=== PATIENT | male | born 1980 | race Caucasian/White ===

== ENCOUNTER 2018-11-11 18:30 | Emergency (ER) | payer SELFPAY ==
[2018-11-11] MEDS ORDERED: NA CHLORIDE 0.9% 1,000 ML ONE ×2 (19:40→20:58)
[2018-11-11 19:55] LABS: Absolute Monocytes 0.7 K/uL (0.1-1.3); Absolute Neutrophil 10.7 K/uL (1.8-8.0); Basophils % 0.5 % (0-1.3); Eosinophils % 0.1 % (0-4.4); Hematocrit 44.8 % (39.6-49.0); Lymphocytes % 14.6 % (15.3-44.8); MPV 8.2 fL (7.6-11.3)
[2018-11-11 20:12] LABS: Potassium 4.1 mmol/L (3.5-5.1)
--- NOTE | 2018-11-11 20:37 | RAD REPORT ---
EXAM DESCRIPTION: Leonarda Pa And Lat (2 Views)11/11/2018 7:17 pm CLINICAL HISTORY: Cough COMPARISON: None FINDINGS: 5 millimeter nodular opacity overlies the right upper lobe. Left lung appears clear The heart is normal size IMPRESSION: A 5 millimeter nodular opacity overlying the right upper lobe may represent confluence o f ribs and vessels or a pulmonary nodule. Follow-up chest film in 6 months is recommended for re-eval uation
[2018-11-11] MEDS ORDERED: PROMETHAZINE 25 MG/ML VIAL ONE (20:58)
[2018-11-11] MEDS ORDERED: KETOROLAC 30 MG/ML INJ ONE (20:58)
--- NOTE | 2018-11-11 22:11 | EDPHYS ---
Physician Documentation [facility] Name: Magdy Davis II Age: 38 yrs Sex: Male : 1980 Arrival Date: 11/11/2018 Time: 18:35 Bed 16 Private MD: ED Physician Hugo Lawson HPI: 11/11 19:50 This 38 yrs old Male presents to ER via Ambulatory with complaints of Body snw Aches, Headache, Congestion. 19:50 Associated signs and symptoms: Pertinent positives: congestion, cough, headache, snw nausea. Modifying factors: The patient symptoms are alleviated by nothing, the patient symptoms are aggravated by lights. The patient has not experienced similar symptoms in the past. The patient has not recently seen a physician. Historical: - Allergies: 18:37 No Known Allergies; tw2 - Home Meds: 18:37 lisinopril 40 mg Oral tab 1 tab once daily [Active]; tw2 - PMHx: 18:37 Hypertension; tw2 - PSHx: 18:37 None; tw2 - Immunization history:: Adult Immunizations. - Social history:: Smoking status: Patient uses tobacco products, 10 cigarettes a day. - Ebola Screening: : Patient denies travel to an Ebola-affected area in the 21 days before illness onset. ROS: 19:49 Constitutional: Negative for fever, chills, and weight loss, Eyes: Negative for injury, snw pain, redness, and discharge, ENT: Negative for injury, pain, and discharge, Neck: Negative for injury, pain, and swelling, Cardiovascular: Negative for chest pain, palpitations, and edema, Abdomen/GI: Negative for abdominal pain, nausea, vomiting, diarrhea, and constipation, Back: Negative for injury and pain, : Negative for injury, bleeding, discharge, and swelling, MS/Extremity: Negative for injury and deformity, Skin: Negative for injury, rash, and discoloration. 19:49 Respiratory: Positive for cough. 19:49 Neuro: Positive for headache. Exam: 19:49 Head/Face: Normocephalic, atraumatic. Eyes: Pupils equal round and reactive to light, snw extra-ocular motions intact. Lids and lashes normal. Conjunctiva and sclera are non-icteric and not injected. Cornea within normal limits. Periorbital areas with no swelling, redness, or edema. ENT: Nares patent. No nasal discharge, no septal abnormalities noted. Tympanic membranes are normal and external auditory canals are clear. Oropharynx with no redness, swelling, or masses, exudates, or evidence of obstruction, uvula midline. Mucous membranes moist. Neck: Trachea midline, no thyromegaly or masses palpated, and no cervical lymphadenopathy. Supple, full range of motion without nuchal rigidity, or vertebral point tenderness. No Meningismus. Chest/axilla: Normal chest wall appearance and motion. Nontender with no deformity. No lesions are appreciated. Cardiovascular: Tachycardic rate and rhythm with a normal S1 and S2. No gallops, murmurs, or rubs. Normal PMI, no JVD. No pulse deficits. Respiratory: Lungs have equal breath sounds bilaterally, clear to auscultation and percussion. No rales, rhonchi or wheezes noted. No increased work of breathing, no retractions or nasal flaring. Abdomen/GI: Soft, non-tender, with normal bowel sounds. No distension or tympany. No guarding or rebound. No evidence of tenderness throughout. Back: No spinal tenderness. No costovertebral tenderness. Full range of motion. Skin: Warm, dry with normal turgor. Normal color with no rashes, no lesions, and no evidence of cellulitis. MS/ Extremity: Pulses equal, no cyanosis. Neurovascular intact. Full, normal range of motion. Neuro: Awake and alert, GCS 15, oriented to person, place, time, and situation. Cranial nerves II-XII grossly intact. Motor strength 5/5 in all extremities. Sensory grossly intact. Cerebellar exam normal. Normal gait. 19:49 Constitutional: The patient appears alert, awake, uncomfortable. Vital Signs: 18:36 BP 148 / 91; Pulse 103; Resp 18; Temp 98.8(O); Pulse Ox 95% on R/A; Weight 138.35 kg tw2 (R); Height 5 ft. 6 in. (167.64 cm); Pain 8/10; 20:48 BP 151 / 94; Pulse 86; Resp 16; Pulse Ox 95% on R/A; la1 22:30 BP 150 / 90; Pulse 80; Resp 18; Temp 97.8; Pulse Ox 99% ; ea 18:36 Body Mass Index 49.23 (138.35 kg, 167.64 cm) tw2 MDM: 19:05 Patient medically screened. snw 22:17 Data reviewed: vital signs, nurses notes. Data interpreted: Pulse oximetry: on room air snw is 95 %. Interpretation: acceptable. Counseling: I had a detailed discussion with the patient and/or guardian regarding: the historical points, exam findings, and any diagnostic results supporting the discharge/admit diagnosis, lab results, radiology results, the need for outpatient follow up. Response to treatment: the patient's symptoms have markedly improved after treatment. Special discussion: I have referred the patient to see his PCP for further evaluation of high blood pressure. Based on the history and exam findings, there is no indication for further emergent testing or inpatient evaluation. I discussed with the patient/guardian the need to see the primary care provider for further evaluation of the symptoms. 11/11 19:18 Order name: Basic Metabolic Panel; Complete Time: 20:22 snw 11/11 19:18 Order name: CBC with Diff; Complete Time: 20:22 snw 11/11 18:40 Order name: Chest Pa And Lat (2 Views) XRAY; Complete Time: 20:37 snw 11/11 19:18 Order name: Blood Culture Adult (2) snw 11/11 19:18 Order name: Procalcitonin; Complete Time: 20:24 snw 11/11 19:18 Order name: Lactate; Complete Time: 20:22 snw 11/11 19:18 Order name: Labs collected and sent; Complete Time: 19:55 snw Administered Medications: 19:55 Drug: NS 0.9% 1000 ml Route: IV; Rate: 1 bolus; Site: right antecubital; tr5 20:50 Follow up: IV Status: Completed infusion la1 20:49 Drug: NS 0.9% 1000 ml Route: IV; Rate: 1 bolus; Site: right antecubital; la1 20:49 Drug: Phenergan 12.5 mg Route: IVP; Site: right antecubital; la1 20:49 Drug: TORadol 30 mg Route: IVP; Site: right antecubital; la1 Disposition: 11/12 07:01 Co-signature as Attending Physician, Hugo Lawson MD. rn Disposition: 11/11/18 22:11 Discharged to Home. Impression: Bronchitis, not specified as acute or chronic, Dehydration, Headache. - Condition is Stable. - Discharge Instructions: Acute Bronchitis, Adult, Dehydration, Adult, Migraine Headache, Hypertension, Cool Mist Vaporizer, Rehydration, Adult. - Prescriptions for Diclofenac Sodium 75 mg Oral Tablet Sustained Release - take 1 tablet by ORAL route 2 times per day; 30 tablet. orphenadrine citrate 100 mg Oral Tablet Sustained Release - take 1 tablet by ORAL route 2 times per day As needed; 20 tablet. - Work release form, Medication Reconciliation Form, Thank You Letter, Antibiotic Education, Prescription Opioid Use form. - Follow up: Private Physician; When: 2 - 3 days; Reason: Recheck today's complaints, Continuance of care, Re-evaluation by your physician. Follow up: Emergency Department; When: As needed; Reason: Worsening of condition. Signatures: Dispatcher [employer] EDMS Geni Crowley, INPATIENT CARE MANAGER RN-C INPATIENT CARE MANAGER RN-Csnw Hugo Lawson MD MD rn Attema, Lee RN RN la1 Yvonne Young RN RN tw2 Ramona Parnell RN Sal Whitehead ea RN RN tr5 Corrections: (The following items were deleted from the chart) 11/11 22:32 22:11 11/11/2018 22:11 Discharged to Home. Impression: Bronchitis, not specified as ea acute or chronic; Dehydration; Headache. Condition is Stable. Forms are Medication Reconciliation Form, Thank You Letter, Antibiotic Education, Prescription Opioid Use. Follow up: Private Physician; When: 2 - 3 days; Reason: Recheck today's complaints, Continuance of care, Re-evaluation by your physician. Follow up: Emergency Department; When: As needed; Reason: Worsening of condition. snw
--- NOTE | 2018-11-11 22:11 | ER ---
Nurse's Notes [facility] Name: Magdy Davis II Age: 38 yrs Sex: Male : 1980 Arrival Date: 11/11/2018 Time: 18:35 Bed 16 Private MD: Diagnosis: Bronchitis, not specified as acute or chronic;Dehydration;Headache Presentation: 11/11 18:35 Presenting complaint: Patient states: i got sick 2 weeks ago, fought it with over the tw2 counter stuff, then Tuesday i went to work with a horrible headache, and it hurt to cough, my back was hurting, i am nauseous and have vomited, i do have some stomach pain. Transition of care: patient was not received from another setting of care. Onset of symptoms was November 11, 2018. Risk Assessment: Do you want to hurt yourself or someone else? Patient reports no desire to harm self or others. Initial Sepsis Screen: Does the patient meet any 2 criteria? No. Patient's initial sepsis screen is negative. Does the patient have a suspected source of infection? No. Patient's initial sepsis screen is negative. Care prior to arrival: None. 18:35 Method Of Arrival: Ambulatory tw2 18:35 Acuity: BIJAN 3 tw2 Triage Assessment: 18:38 Headache History: Denies prior headaches. General: Appears in no apparent distress. tw2 obese, well groomed, Behavior is calm, cooperative, appropriate for age. Pain: Complains of pain in occipital area and base of the skull Pain currently is 8 out of 10 on a pain scale. Pain began 2-3 days ago. Also complains of nausea, photophobia. Neuro: Level of Consciousness is awake, alert, obeys commands, Oriented to person, place, time, situation. Historical: - Allergies: 18:37 No Known Allergies; tw2 - Home Meds: 18:37 lisinopril 40 mg Oral tab 1 tab once daily [Active]; tw2 - PMHx: 18:37 Hypertension; tw2 - PSHx: 18:37 None; tw2 - Immunization history:: Adult Immunizations. - Social history:: Smoking status: Patient uses tobacco products, 10 cigarettes a day. - Ebola Screening: : Patient denies travel to an Ebola-affected area in the 21 days before illness onset. Screenin:49 Abuse screen: Denies threats or abuse. Nutritional screening: No deficits noted. la1 Tuberculosis screening: No symptoms or risk factors identified. Fall Risk None identified. Assessment: 20:01 General: Appears in no apparent distress. Behavior is calm, cooperative, appropriate tr5 for age, Reports feeling ill for Denies fever, chills. Pain: Complains of pain in forehead, right mormon and left mormon. 20:02 Neuro: Level of Consciousness is awake, alert, obeys commands, Oriented to person, tr5 place, time, Reports headache frontal area, Denies weakness difficulty swallowing. Cardiovascular: Heart tones S1 S2 Bruits absent Capillary refill < 3 seconds Pulses are all present. Edema is absent. Respiratory: Airway is patent Breath sounds are clear bilaterally. GI: No signs and/or symptoms were reported involving the gastrointestinal system. : No signs and/or symptoms were reported regarding the genitourinary system. EENT: No signs and/or symptoms were reported regarding the EENT system. Derm: Skin is pink, warm \T\ dry. Skin temperature is warm. Musculoskeletal: Capillary refill < 3 seconds, Range of motion: intact in all extremities. 20:41 Reassessment: Patient appears in no apparent distress at this time. No changes from la1 previously documented assessment. Patient and/or family updated on plan of care and expected duration. Pain level reassessed. Patient is alert, oriented x 3, equal unlabored respirations, skin warm/dry/pink. 22:30 Reassessment: Patient and/or family updated on plan of care and expected duration. Pain ea level reassessed. Patient is alert, oriented x 3, equal unlabored respirations, skin warm/dry/pink. Discharge instruction given to patient, verbalized the understanding of instruction. Pt left ED ambulatory accompanied by significant other. Vital Signs: 18:36 BP 148 / 91; Pulse 103; Resp 18; Temp 98.8(O); Pulse Ox 95% on R/A; Weight 138.35 kg tw2 (R); Height 5 ft. 6 in. (167.64 cm); Pain 8/10; 20:48 BP 151 / 94; Pulse 86; Resp 16; Pulse Ox 95% on R/A; la1 22:30 BP 150 / 90; Pulse 80; Resp 18; Temp 97.8; Pulse Ox 99% ; ea 18:36 Body Mass Index 49.23 (138.35 kg, 167.64 cm) tw2 ED Course: 18:35 Patient arrived in ED. rg4 18:36 Triage completed. tw2 18:37 Arm band placed on. tw2 18:39 Geni Crowley FNP-C is [facility]. snw 18:39 Hugo Lawson MD is Attending Physician. snw 19:16 Chest Pa And Lat (2 Views) XRAY In Process Unspecified. EDMS 19:18 Shabbir Dickson, RN is Primary Nurse. la1 19:45 Inserted saline lock: 20 gauge in right antecubital area, using aseptic technique. oe Blood collected. 20:48 Call light in reach. Side rails up X 1. Pulse ox on. NIBP on. la1 22:32 No provider procedures requiring assistance completed. IV discontinued, intact, ea bleeding controlled, No redness/swelling at site. Pressure dressing applied. Administered Medications: 19:55 Drug: NS 0.9% 1000 ml Route: IV; Rate: 1 bolus; Site: right antecubital; tr5 20:50 Follow up: IV Status: Completed infusion la1 20:49 Drug: NS 0.9% 1000 ml Route: IV; Rate: 1 bolus; Site: right antecubital; la1 20:49 Drug: Phenergan 12.5 mg Route: IVP; Site: right antecubital; la1 20:49 Drug: TORadol 30 mg Route: IVP; Site: right antecubital; la1 Outcome: 22:11 Discharge ordered by . snw 22:32 Patient left the ED. ea 22:32 Discharged to home ambulatory, with significant other. ea 22:32 Condition: improved 22:32 Discharge instructions given to patient, Instructed on discharge instructions, follow up and referral plans. medication usage, Demonstrated understanding of instructions, follow-up care, medications, Prescriptions given X 2. Signatures: Dispatcher [employer] EDMS Geni Crowley FNP-C WATER POLLUTION CONTROL TECHNICIAN-Csnw Shabbir Dickson RN RN la1 Yvonne Young RN RN tw2 Kelly Nagy rg4 Checo Mejia Elena, RN RN ea Rodriguez, Tommie RN RN tr5 Corrections: (The following items were deleted from the chart) 11/12 00:06 11/11 23:30 BP 150 / 90; Pulse 80bpm; Resp 18bpm; Pulse Ox 99%; Temp 97.8F; ea ea
== END 2018-11-11 22:32 | disposition home or self-care (01) ==
LOC: ER 18:30
DX: J40 Bronchitis, not specified as acute or chronic (principal); E86.0 Dehydration; I10 Essential (primary) hypertension; F17.210 Nicotine dependence, cigarettes, uncomplicated
CPT/HCPCS: 36415; 71046; 80048; 83605; 84145; 85025; 87040; 96361; 96374; 96375; 99284; J2550; J7030